=== PATIENT | female | born 1955 | race Caucasian/White ===

== ENCOUNTER 2018-01-07 21:25 | Emergency (ER) | payer OTHER ==
[~2018-01-07 21:25] MED LIST: DOC100 PO; IBU600 PO; LISI-351; LISINOPRIL/HCTZ PO; LOR5 PO; LOR5/325 PO; MECL12.5 PO; NO ROUTINE MEDS; PENI-24 PO; PER PO
--- NOTE | 2018-01-07 21:29 | ER Report ---
History and Physical Time Seen By MD: 21:28 HPI/ROS CHIEF COMPLAINT: Rectal bleeding HISTORY OF PRESENT ILLNESS: 62-year-old female presents to the ER with concerns over heavy rectal bleeding. She has a long history of hemorrhoids and has frequent episodes of bleeding. But tonight she had fairly heavy bleeding. She saturated several pads. She denies shortness of breath or near-syncope feeling. She takes no blood thinners. REVIEW OF SYSTEMS: Respiratory: No cough, no dyspnea. Cardiovascular: No chest pain, no palpitations. Gastrointestinal: No vomiting, no abdominal pain. Musculoskeletal: No back pain. Allergies: Coded Allergies: vancomycin (Verified Allergy, Intermediate, PAINFUL IV SITES AT INJECTION , 04/19/15) BEE STINGS (Unverified Allergy, Mild, SWELLING, 04/19/15) Uncoded Allergies: BAND-AID (Allergy, Intermediate, RED RASH, 12/16/09) Home Meds Active Scripts Hydrocortisone Acetate (Hemmorex-Hc) 25 Mg Supp.rect, 1 SUPP.RECT MI BID for hemorrhoidal inflammation, #20 Prov:BRANDY REYES DO 01/07/18 Triamcinolone Acetonide 0.1% Oint 15 Gm Tube (TRIAMCINOLONE ACETONIDE 0.1% 15 GM TUBE) 15 Gm Oint...g., 0.5 GM TP BID for hemorrhoidal inflammation, #30 TUBE Apply a small amount of ointment twice daily to the affected area Prov:BRANDY REYES DO 01/07/18 Reported Medications Lisinopril/Hydrochlorothiazide (LISINOPRIL-HCTZ 10-12.5 MG TAB) 1 Each Tablet 04/19/15 Past Medical/Surgical History Patient has a past medical history of headaches, hypertension, GERD, dental decay. Patient has a surgical history of a tonsillectomy, D&C. Patient is a former smoker, denies alcohol use or recreational drug use. Reviewed Nurses Notes: Yes Old Medical Records Reviewed: Yes Hx Smoking: No Smoking Status: Former Smoker Exposure to Second Hand Smoke?: No Constitutional Vital Sign - Last 24 Hours 01/07/18 01/07/18 01/07/18 01/07/18 21:30 21:31 21:40 21:55 Temp 98.0 Pulse 84 78 Resp 16 B/P (MAP) 143/78 143/78 (99) 130/77 (94) Pulse Ox 90 94 90 O2 Delivery Room Air 01/07/18 01/07/18 01/07/18 01/07/18 22:00 22:10 22:25 22:29 Pulse 75 77 B/P (MAP) 111/88 (96) Pulse Ox 92 88 92 01/07/18 01/07/18 01/07/18 01/07/18 22:34 22:40 22:49 22:54 Pulse 75 72 75 B/P (MAP) 129/65 (86) Pulse Ox 92 95 92 01/07/18 01/07/18 01/07/18 23:00 23:09 23:20 Pulse 75 B/P (MAP) 127/67 (87) 129/66 (87) Pulse Ox 93 Physical Exam Vital signs stable, afebrile, pulse ox normal, orthostatics unremarkable General Appearance: The patient is alert, has no immediate need for airway protection and no current signs of toxicity. Skin warm, dry, pink Eyes: Pupils equal and round no injection. Respiratory: Chest is non tender, lungs are clear to auscultation. Cardiac: regular rate and rhythm Gastrointestinal: Abdomen is soft and non tender, no masses, bowel sounds normal. Rectal:, There gross external hemorrhoids noted with numerous skin tanks. There are friable areas noted. Anoscopy is performed. There are numerous friable internal hemorrhoids as well. There's not appear to be any bleeding from upstream. Musculoskeletal: Neck: Neck is supple and non tender. Extremities have full range of motion and are non tender. No edema, no calf tenderness Skin: No rashes or lesions. DIFFERENTIAL DIAGNOSIS: After history and physical exam differential diagnosis was considered forlower GI bleeding including but not limited to diverticulosis , tumor, AVM, hemorrhoid and anal fissure. Medical Decision Making Data Points Result Diagram: 01/07/18223401/07/182234 Laboratory Hematology Test 01/07/18 22:35 Red Blood Count 5.19 M/uL (4.17-5.56) Mean Corpuscular Volume 85.9 fL (80.0-96.0) Mean Corpuscular Hemoglobin 29.7 pg (26.0-33.0) Mean Corpuscular Hemoglobin Concent 34.6 g/dL (32.0-36.0) Red Cell Distribution Width 13.9 % (11.5-14.5) Mean Platelet Volume 9.4 fL (7.2-11.1) Neutrophils (%) (Auto) 54.9 % (39.4-72.5) Lymphocytes (%) (Auto) 34.3 % (17.6-49.6) Monocytes (%) (Auto) 8.5 % (4.1-12.4) Eosinophils (%) (Auto) 1.5 % (0.4-6.7) Basophils (%) (Auto) 0.8 % (0.3-1.4) Nucleated RBC Relative Count (auto) 0.1 /100WBC Neutrophils # (Auto) 3.6 K/uL (2.0-7.4) Lymphocytes # (Auto) 2.2 K/uL (1.3-3.6) Monocytes # (Auto) 0.6 K/uL (0.3-1.0) Eosinophils # (Auto) 0.1 K/uL (0.0-0.5) Basophils # (Auto) 0.1 K/uL (0.0-0.1) Nucleated RBC Absolute Count (auto) 0.01 K/uL Prothrombin Time 13.2 seconds (12.0-14.4) Prothromb Time International Ratio 1.00 Activated Partial Thromboplast Time 26 seconds (23-35) Sodium Level 139 mmol/L (137-145) Potassium Level 3.8 mmol/L (3.5-5.0) Chloride Level 102 mmol/L (98-107) Carbon Dioxide Level 27 mmol/L (22-31) Blood Urea Nitrogen 20 mg/dl (7-18) Creatinine 0.80 mg/dl (0.52-1.04) Glomerular Filtration Rate Calc > 60.0 Random Glucose 107 mg/dl (75-110) Calcium Level 9.7 mg/dl (8.4-10.2) Total Bilirubin 0.9 mg/dl (0.2-1.3) Aspartate Amino Transf (AST/SGOT) 16 U/L (0-35) Alanine Aminotransferase (ALT/SGPT) 30 U/L (0-56) Alkaline Phosphatase 74 U/L (0-126) Total Protein 6.5 gm/dl (6.3-8.2) Albumin 3.5 g/dl (3.5-5.0) Amylase Level 71 U/L (0-110) Lipase 104 U/L (23-300) Chemistry Test 01/07/18 22:35 White Blood Count 6.5 k/uL (4.5-11.0) Red Blood Count 5.19 M/uL (4.17-5.56) Hemoglobin 15.4 g/dL (12.0-16.0) Hematocrit 44.6 % (34.0-47.0) Mean Corpuscular Volume 85.9 fL (80.0-96.0) Mean Corpuscular Hemoglobin 29.7 pg (26.0-33.0) Mean Corpuscular Hemoglobin Concent 34.6 g/dL (32.0-36.0) Red Cell Distribution Width 13.9 % (11.5-14.5) Platelet Count 201 K/uL (150-450) Mean Platelet Volume 9.4 fL (7.2-11.1) Neutrophils (%) (Auto) 54.9 % (39.4-72.5) Lymphocytes (%) (Auto) 34.3 % (17.6-49.6) Monocytes (%) (Auto) 8.5 % (4.1-12.4) Eosinophils (%) (Auto) 1.5 % (0.4-6.7) Basophils (%) (Auto) 0.8 % (0.3-1.4) Nucleated RBC Relative Count (auto) 0.1 /100WBC Neutrophils # (Auto) 3.6 K/uL (2.0-7.4) Lymphocytes # (Auto) 2.2 K/uL (1.3-3.6) Monocytes # (Auto) 0.6 K/uL (0.3-1.0) Eosinophils # (Auto) 0.1 K/uL (0.0-0.5) Basophils # (Auto) 0.1 K/uL (0.0-0.1) Nucleated RBC Absolute Count (auto) 0.01 K/uL Prothrombin Time 13.2 seconds (12.0-14.4) Prothromb Time International Ratio 1.00 Activated Partial Thromboplast Time 26 seconds (23-35) Glomerular Filtration Rate Calc > 60.0 Calcium Level 9.7 mg/dl (8.4-10.2) Total Bilirubin 0.9 mg/dl (0.2-1.3) Aspartate Amino Transf (AST/SGOT) 16 U/L (0-35) Alanine Aminotransferase (ALT/SGPT) 30 U/L (0-56) Alkaline Phosphatase 74 U/L (0-126) Total Protein 6.5 gm/dl (6.3-8.2) Albumin 3.5 g/dl (3.5-5.0) Amylase Level 71 U/L (0-110) Lipase 104 U/L (23-300) Coagulation Test 01/07/18 22:35 Prothrombin Time 13.2 seconds Prothromb Time International Ratio 1.00 Activated Partial Thromboplast Time 26 seconds ED Course/Re-evaluation Clinical Indication for ER IV: Hydration, IV Access ED Course Patient was minute to an examination room. H&P was done. The differential diagnoses was considered. Patient with a history of hemorrhoids. She's been having significant rectal bleeding this evening. She always has a little bit of bleeding from her hemorrhoids. She has not sought surgical help to evaluate her hemorrhoids. Her vital signs are stable. Her bleeding is stopped here. Anoscopy is performed which shows friable internal and external hemorrhoids. She'll be prescribed triamcinolone ointment for the external hemorrhoids and hemorrhoidal suppositories for the internal. She is advised to take stool softeners and MiraLAX. She's given Gen. surgery's number to follow-up for evaluation. Decision to Disposition Date: Jan 07, 2018 Decision to Disposition Time: 23:21 Depart Departure Latest Vital Signs Vital Signs Date Time Temp Pulse Resp B/P (MAP) Pulse Ox O2 Delivery O2 Flow Rate FiO2 01/07/18 23:20 129/66 (87) 01/07/18 23:09 75 93 01/07/18 21:30 98.0 16 Room Air Impression: Primary Impression: Rectal bleeding Additional Impression: History of hemorrhoids Condition: Improved Disposition: HOME OR SELF-CARE Referrals: OLIVIA SHAW DO (PCP) BORIS HAILE MD,MELISSA Talbot MD [facility] Hydrocortisone Acetate (Hemmorex-Hc) 25 Mg Supp.rect 1 SUPP.RECT MI BID for hemorrhoidal inflammation, #20 Prov: BRANDY REYES DO 01/07/18 Triamcinolone Acetonide 0.1% Oint 15 Gm Tube (TRIAMCINOLONE ACETONIDE 0.1% 15 GM TUBE) 15 Gm Oint...g. 0.5 GM TP BID for hemorrhoidal inflammation, #30 TUBE Apply a small amount of ointment twice daily to the affected area Prov: BRANDY REYES DO 01/07/18 Patient Instructions: Rectal Bleeding (ED) Additional Instructions: Insert a rectal suppository twice daily to reduce inflammation to your internal hemorrhoids Apply a small dab of triamcinolone ointment to your external hemorrhoids twice daily Begin taking a stool softener to prevent hard stools, you may use Colace 100 mg twice daily or MiraLAX, once daily Follow-up with general surgery for evaluation as soon as possible Return to the ER for any heavy bleeding that is unstopped after 2 hours, especially if you're feeling dizzy or lightheaded Problem Qualifiers BRANDY REYES DO Jan 07, 2018 21:29
[2018-01-07] MEDS ORDERED: NS(*) 0.9% 1000 ML BAG 1,000 ML IV ONE (21:54)
[2018-01-07 22:43] LABS: PLATELET COUNT, AUTOMATED 201 K/uL (150-450)
[2018-01-07 23:20] VITALS: BP 129/66
[2018-01-07] MEDS ORDERED: TRIA15OI20 TP (23:33)
[2018-01-07] MEDS ORDERED: HYDR25SU10 PR (23:33)
== END 2018-01-07 23:46 | disposition home or self-care (01) ==
LOC: ER 21:48
DX: K64.4 Residual hemorrhoidal skin tags (principal); K64.8 Other hemorrhoids
CPT/HCPCS: 36415; 82150; 83690; 85025; 85610; 85730; 96360; 99283; J7030; 82040; 82247; 82310; 82374; 82435; 82565; 82947; 84075; 84132; 84155; 84295; 84450; 84460; 84520